=== PATIENT | male | born 1970 | race Caucasian/White ===

== ENCOUNTER 2016-02-27 13:34 | Day surgery (SDC) | payer OTHER ==
[2016-02-27] MEDS ORDERED: LACTATED RINGERS 1,000 ML IV ONE (14:31)
[2016-02-27] MEDS ORDERED: fentaNYL 250 MCG/5 ML VIAL IVP ONE (16:10)
[2016-02-27] MEDS ORDERED: MIDAZOLAM 2 MG/2 ML VIAL IVP ONE (16:10)
== END 2016-02-27 13:35 | disposition home or self-care (01) ==
PROC: 0DBN8ZZ Excision of Sigmoid Colon, Via Natural or Artificial Opening Endoscopic (ICD-10-PCS; principal; 2016-02-27 15:15)
PROC: 0DB98ZX Excision of Duodenum, Via Natural or Artificial Opening Endoscopic, Diagnostic (ICD-10-PCS; 2016-02-27 15:15)
DX: Z12.11 Encounter for screening for malignant neoplasm of colon (principal); D12.5 Benign neoplasm of sigmoid colon; D64.9 Anemia, unspecified; Z80.0 Family history of malignant neoplasm of digestive organs; M10.9 Gout, unspecified
CPT/HCPCS: 43239; 45380; 87640; 88305; J3010; J7120